=== PATIENT | female | born 1995 | race Caucasian/White ===

== ENCOUNTER 2019-10-16 03:47 | Observation (INO) | payer OTHER ==
--- NOTE | 2019-10-16 04:54 | RADIOLOGY REPORT (SQ) ---
CLINICAL HISTORY: bone tenderness COMPARISON: None. 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 Lungs are clear without consolidation, atelectasis, mass or edema. There is no pleural effusion. There is no pneumothorax. There are no acute osseous findings. IMPRESSION: Clear lungs.
[2019-10-16] MEDS ORDERED: KETOROLAC TROMETHAMINE INJ/PF 30 MG/1 ML SDV IV ONE (05:18)
--- NOTE | 2019-10-16 05:20 | ER Document Report ---
Entered by ALVINO QURESHI SCRIBE 10/16/19 0520 Acting as scribe for:ABEL CHAUDHARI IV, MD ED Medical Screen (RME) - General Chief Complaint: Rib Pain Stated Complaint: RIB PAIN Time Seen by Provider: 10/16/19 05:04 Information source: Patient Notes: This 24 year old female patient presents to the emergency department today with complaints of right upper quadrant abdominal pain. Patient states that she has had this same pain 3 times over the past six years but only had it worked up the first time, which was six years ago. Patient states she thinks they looked at her gall bladder but she is not sure. Patient reports that her mother had her gall bladder removed at age 23. - Related Data Allergies/Adverse Reactions: No Known Allergies Allergy (Verified 10/16/19 04:13) Past Medical History Pulmonary Medical History: Reports: Hx Asthma Past Surgical History: Reports: Hx Gynecologic Surgery Review of Systems - Review of Systems Gastrointestinal: See HPI, Abdominal pain, Nausea, Vomiting Physical Exam - Vital signs Vitals: Temp Pulse Resp BP Pulse Ox 97.6 F 62 20 115/68 100 10/16/19 04:08 10/16/19 04:08 10/16/19 04:08 10/16/19 04:08 10/16/19 04:08 - Respiratory Respiratory status: No respiratory distress - Cardiovascular Rhythm: Regular Heart sounds: Normal auscultation Murmur: No - Abdominal Distension: No distension Tenderness: Tender - RUQ ttp, Ibrahim's sign Course - Vital Signs Vital signs: Temp Pulse Resp BP Pulse Ox 97.6 F 62 20 115/68 100 10/16/19 04:08 10/16/19 04:08 10/16/19 04:08 10/16/19 04:08 10/16/19 04:08 I personally performed the services described in the documentation, reviewed and edited the documentation which was dictated to the scribe in my presence, and it accurately records my words and actions.
[2019-10-16 06:12] LABS: ABSOLUTE MONOCYTES (AUTO) 0.4 10^3/uL (0.1-1.4); ABSOLUTE NEUT (AUTO) 2.7 10^3/uL (1.7-8.2); BASOPHILS % (AUTO) 0.4 % (0-2); EOSINOPHILS % (AUTO) 0.4 % (0-6); HEMATOCRIT 41.8 % (36.0-47.0); HEMOGLOBIN 14.7 g/dL (12.0-15.5); LYMPHOCYTES % (AUTO) 24.4 % (13-45); MEAN CORPUSCULAR HEMOGLOBIN 30.8 pg (27.0-33.4); MEAN CORPUSCULAR VOLUME 88 fl (80-97); MONOCYTES % (AUTO) 10.3 % (3-13); PLATELET COUNT 159 10^3/uL (150-450); RED BLOOD COUNT 4.75 10^6/uL (3.72-5.28); RED CELL DISTRIBUTION WIDTH 13.5 % (11.5-14.0); SEGMENTED NEUTROPHILS % (AUTO) 64.5 % (42-78); TOTAL CELLS COUNTED % (AUTO) 100 %; WHITE BLOOD COUNT 4.2 10^3/uL (4.0-10.5)
[2019-10-16 06:23] LABS: APPEARANCE,URINE SLIGHTLY-CLOUDY; BILIRUBIN,URINE NEGATIVE (NEGATIVE); COLOR,URINE AMBER; GLUCOSE, URINE NEGATIVE (NEGATIVE); KETONES,URINE 20 mg/dL (NEGATIVE); LEUKOCYTE ESTERASE,URINE SMALL (NEGATIVE); NITRITE,URINE NEGATIVE (NEGATIVE); PROTEIN,URINE 30 mg/dL (NEGATIVE)
[2019-10-16 06:33] LABS: ALBUMIN 4.2 g/dL (3.5-5.0); ALKALINE PHOSPHATASE 134 U/L (38-126); ANION GAP 9 (5-19); BILIRUBIN,DIRECT 0.7 mg/dL (0.0-0.4); BILIRUBIN,TOTAL 1.7 mg/dL (0.2-1.3); BLOOD UREA NITROGEN 18 mg/dL (7-20); CALCIUM 8.9 mg/dL (8.4-10.2); CARBON DIOXIDE 24 mmol/L (22-30); CHLORIDE 105 mmol/L (98-107); GLUCOSE 83 mg/dL (75-110)
[2019-10-16 06:43] LABS: ASPARTATE AMINO TRANSFERASE 773 U/L (14-36)
--- NOTE | 2019-10-16 06:45 | ER Document Report ---
ED General - General Chief Complaint: Rib Pain Stated Complaint: RIB PAIN Time Seen by Provider: 10/16/19 05:04 Notes: -year-old female presents with right upper quadrant pain. Severe. Since last night with vomiting. Happened last week after eating and then happen again last night after dinner and has been constant. No fevers no diarrhea. Strong family history of gallstone disease. - Related Data Allergies/Adverse Reactions: No Known Allergies Allergy (Verified 10/16/19 04:13) Past Medical History - General Information source: Patient - Social History Smoking Status: Never Smoker Family History: Reviewed & Not Pertinent Patient has suicidal ideation: No Patient has homicidal ideation: No Pulmonary Medical History: Reports: Hx Asthma Past Surgical History: Reports: Hx Gynecologic Surgery Review of Systems - Review of Systems Notes: REVIEW OF SYSTEMS GEN: Denies fever, chills, weight loss ENT: Denies sore throat, nasal discharge, ear pain EYES: Denies blurry vision, eye pain, discharge CV: Denies chest pain, palpitations, edema RESP: Denies cough, shortness of breath, wheezing GI see HPI MSK: Denies joint pain/swelling, edema, SKIN: Denies rash, skin lesions LYMPH: Denies swollen glands/lymph nodes NEURO: Denies headache, focal weakness or numbness, dizziness PSYCH: Denies depression, suicidal or homicidal ideation PHYSICAL EXAMINATION General: No acute distress, well-nourished Head: Atraumatic, normocephalic ENT: Mouth normal, oropharynx moist, no exudates or tonsillar enlargement Eyes: Conjunctiva normal, pupils equal, lids normal Neck: No JVD, supple, no guarding CVS: Normal rate, regular rhythm, no murmurs Resp: No resp distress, equal and normal breath sounds bilaterally GI: Positive Ibrahim's positive right upper quadrant tenderness Ext: No deformities, no edema, normal range of motion in upper and lower ext Back: No CVA or midline TTP Skin: No rash, warm Lymphatic: No lymphadeopathy noted Neuro: Awake, alert. Face symmetric. GCS 15. Physical Exam - Vital signs Vitals: Temp Pulse Resp BP Pulse Ox 97.6 F 62 20 115/68 100 10/16/19 04:08 10/16/19 04:08 10/16/19 04:08 10/16/19 04:08 10/16/19 04:08 Course - Re-evaluation Re-evalutation: 10/16/19 15:57 Patient presents with upper abdominal pain Ibrahim sign suspicious for gallbladder disease given that she has a family history. Bedside ultrasound positive for dilated gallbladder dilated extrahepatic biliary ducts, and her LFTs are elevated. Order formal ultrasound, discussed with Kendell. No indication for antibiotics Given pain medicine Dr. Rdz to admit - Vital Signs Vital signs: Temp Pulse Resp BP Pulse Ox 97.9 F 54 L 16 103/70 99 10/16/19 11:01 10/16/19 11:01 10/16/19 11:01 10/16/19 11:01 10/16/19 11:01 - Laboratory Result Diagrams: 10/16/19 05:38 10/16/19 05:38 Laboratory results interpreted by me: 10/16/19 10/16/19 05:38 05:50 Total Bilirubin 1.7 H Direct Bilirubin 0.7 H AST 773 H Alkaline Phosphatase 134 H Urine Protein 30 H Urine Ketones 20 H Urine Blood SMALL H Urine Urobilinogen 4.0 H Ur Leukocyte Esterase SMALL H - Diagnostic Test Radiology reviewed: Image reviewed, Reports reviewed Procedures - Ultrasound/Bedside Ultrasound/Bedside Ultrasound: Other - Positive sonographic Ibrahim's. Gallbladder measures 4-1/2 x 9 cm. Dilation. CBDextrahepatic biliary duct measures 1 mm Discharge - Discharge Clinical Impression: Acute cholecystitis Condition: Good Disposition: ADMITTED INPATIENT Admitting Provider: Surgicalist Unit Admitted: Surgical Floor
[2019-10-16] MEDS ORDERED: FENTANYL CITRATE INJ/PF 100 MCG/2 ML AMPUL IV ONE (07:27)
--- NOTE | 2019-10-16 08:17 | PDOC H&P ---
History of Present Illness Admission Date/PCP: 10/16/19 07:29 Patient complains of: Abdominal pain History of Present Illness: ALPA ZHANG is a 24 year old female presents the emergency department complaining of acute onset last night of abdominal pain, nausea and anorexia. Patient has had similar episodes over the last 6 months. She has a remote history of fully stasis during . Strong family history of gallbladder disease. Patient seen in emergency department where she had right subcostal pain radiating to her back. She had a gallbladder ultrasound by the emergency room physician which suggested a distended gallbladder. Formal gallbladder ultrasound by radiology pending. Surgery was consulted. Patient was evaluated emergency department found to have right upper quadrant tenderness. She was hemodynamically stable, no evidence of sepsis. Past Medical History Past Medical History: Elevated liver function studies Medical History: None Pulmonary Medical History: Reports: Asthma Past Surgical History Past Surgical History: No past surgical history Social History Information Source: Patient Smoking Status: Never Smoker Electronic Cigarette use?: No Frequency of Alcohol Use: None Hx Recreational Drug Use: No Hx Prescription Drug Abuse: No Family History Family History: None Parental Family History Reviewed: No Children Family History Reviewed: No Sibling(s) Family History Reviewed.: No Medication/Allergy Allergies/Adverse Reactions: No Known Allergies Allergy (Verified 10/16/19 04:13) Review of Systems Constitutional: PRESENT: as per HPI Eyes: ABSENT: visual disturbances Ears: ABSENT: hearing changes Cardiovascular: ABSENT: chest pain, dyspnea on exertion, edema, orthropnea, palpitations Respiratory: ABSENT: cough, hemoptysis Musculoskeletal: ABSENT: joint swelling Integumentary: ABSENT: rash, wounds Neurological: ABSENT: abnormal gait, abnormal speech, confusion, dizziness, focal weakness, syncope Psychiatric: ABSENT: anxiety, depression, homidical ideation, suicidal ideation Endocrine: ABSENT: cold intolerance, heat intolerance, polydipsia, polyuria Hematologic/Lymphatic: ABSENT: easy bleeding, easy bruising Physical Exam Vital Signs: Temp Pulse Resp BP Pulse Ox 97.6 F 62 20 115/68 100 10/16/19 04:08 10/16/19 04:08 10/16/19 04:08 10/16/19 04:08 10/16/19 04:08 Intake & Output 10/15/19 10/16/19 10/17/19 06:59 06:59 06:59 Weight 52.3 kg General appearance: PRESENT: no acute distress Head exam: PRESENT: normocephalic Eye exam: PRESENT: EOMI Mouth exam: PRESENT: dry mucosa Respiratory exam: PRESENT: clear to auscultation lewis Pulses: PRESENT: normal carotid pulses, normal radial pulses, normal femoral pulses GI/Abdominal exam: PRESENT: soft - Tender right upper quadrant with guarding Rectal exam: PRESENT: deferred Musculoskeletal exam: PRESENT: full ROM Neurological exam: PRESENT: oriented to person, oriented to place, oriented to time, oriented to situation Psychiatric exam: PRESENT: appropriate affect Results Laboratory Results: 10/16/19 05:38 10/16/19 05:38 10/16/19 10/16/19 10/16/19 05:38 05:38 05:38 WBC 4.2 RBC 4.75 Hgb 14.7 Hct 41.8 MCV 88 MCH 30.8 MCHC 35.0 RDW 13.5 Plt Count 159 Seg Neutrophils % 64.5 Sodium 138.3 Potassium 4.0 Chloride 105 Carbon Dioxide 24 Anion Gap 9 BUN 18 Creatinine 0.66 Est GFR ( Amer) > 60 Glucose 83 Calcium 8.9 Total Bilirubin 1.7 H AST 773 H Alkaline Phosphatase 134 H Total Protein 7.0 Albumin 4.2 Lipase 145.7 Serum HCG, Qual NEGATIVE Urine Color Urine Appearance Urine pH Ur Specific [place] Urine Protein Urine Glucose (UA) Urine Ketones Urine Blood Urine Nitrite Ur Leukocyte Esterase Urine WBC (Auto) Urine RBC (Auto) 10/16/19 05:50 WBC RBC Hgb Hct MCV MCH MCHC RDW Plt Count Seg Neutrophils % Sodium Potassium Chloride Carbon Dioxide Anion Gap BUN Creatinine Est GFR ( Amer) Glucose Calcium Total Bilirubin AST Alkaline Phosphatase Total Protein Albumin Lipase Serum HCG, Qual Urine Color FELA Urine Appearance SLIGHTLY-CLOUDY Urine pH 5.0 Ur Specific [place] 1.030 Urine Protein 30 H Urine Glucose (UA) NEGATIVE Urine Ketones 20 H Urine Blood SMALL H Urine Nitrite NEGATIVE Ur Leukocyte Esterase SMALL H Urine WBC (Auto) 20 Urine RBC (Auto) 2 Impressions: Ribs w/Chest X-Ray 10/16/19 00:00 IMPRESSION: Clear lungs. Assessment & Plan - Diagnosis (1) Acute cholecystitis Is this a current diagnosis for this admission?: Yes Plan: Impression: Postprandial right upper quadrant pain, anorexia in thin white female with right upper quadrant tenderness, and dilated gallbladder on preliminary ultrasound suggestive of acute cholecystitis Recommendations: 1. Admit, n.p.o. IV fluids 2. Obtain formal gallbladder ultrasound 3. Anticipate interval cholecystectomy. (2) Elevated LFTs Is this a current diagnosis for this admission?: Yes - Time Time Spent: 30 to 50 Minutes Medications reviewed and adjusted accordingly: Yes Anticipated discharge: Home - Inpatient Certification Based on my medical assessment, after consideration of the patient's comorbidities, presenting symptoms, or acuity I expect that the services needed warrant INPATIENT care.: Yes I certify that my determination is in accordance with my understanding of Medicare's requirements for reasonable and necessary INPATIENT services [42 CFR 412.3e].: Yes Medical Necessity: Need For IV Fluids
[2019-10-16] MEDS ORDERED: RINGERS SOLUTION,LACTATED 1,000 ML IV PRN (08:18)
[2019-10-16] MEDS ORDERED: KETOROLAC TROMETHAMINE INJ/PF 30 MG/1 ML SDV IV PRN (08:18)
--- NOTE | 2019-10-16 08:29 | RADIOLOGY REPORT (SQ) ---
EXAM DESCRIPTION: U/S ABDOMEN LIMITED W/O DOP COMPLETED DATE/TIME: 10/16/2019 8:08 am REASON FOR STUDY: Right upper quadrant pain COMPARISON: None. TECHNIQUE: Dynamic and static grayscale images acquired of the abdomen and recorded on PACS. Additio nal selected color Doppler and spectral images recorded. LIMITATIONS: None. FINDINGS: PANCREAS: No masses. Visualized pancreatic duct normal caliber. LIVER: No masses. Echotexture normal. LIVER VASCULATURE: Normal directional flow of the main portal vein and hepatic veins. GALLBLADDER: Mild gallbladder distention. No wall thickening. No stones or sludge. In a focal area of the gallbladder there is possible pericholecystic edema. This is a soft finding. ULTRASOUND-DETECTED STEPHENS'S SIGN: Negative. INTRAHEPATIC DUCTS AND COMMON DUCT: The common bile duct is dilated measured 8 mm. No stones are asaf ntified. AORTA: No aneurysm. RIGHT KIDNEY: Normal size. Normal echogenicity. No solid or suspicious masses. No hydronephrosis. No calcifications. PERITONEAL AND RIGHT PLEURAL SPACE: No ascites or effusions. OTHER: No other significant findings. IMPRESSION: No stones or sludge. Questionable focal area of pericholecystic fluid. Mild gallbladde r distention. The common bile duct is dilated measured 8 mm. Further evaluation with hepatobiliary scanning may be helpful for further evaluation. TECHNICAL DOCUMENTATION: JOB ID: [id number] [email or web address]- All Rights Reserved Reading location - IP/workstation name: [email or web address]
[2019-10-16] MEDS ORDERED: SUCCINYLCHOLINE CHLORIDE INJ 200 MG/10 ML VIAL ONE (09:41)
[2019-10-16] MEDS ORDERED: ROCURONIUM BROMIDE INJ 50 MG/5 ML VIAL IV ONE (09:41)
[2019-10-16] MEDS ORDERED: BUPIVACAINE HCL 0.25 % INJ/PF (2.5 MG/1 ML) 30 ML VIAL ONE (12:54)
[2019-10-16] MEDS ORDERED: KETOROLAC TROMETHAMINE 60 MG/2 ML SDV ONE (13:00)
[2019-10-16] MEDS ORDERED: HYDROMORPHONE HCL INJ/PF 2 MG/ML AMPULE ONE (13:00)
[2019-10-16] MEDS ORDERED: FENTANYL CITRATE INJ/PF 100 MCG/2 ML AMPUL ONE (13:00)
[2019-10-16] MEDS ORDERED: SUGAMMADEX SODIUM 200 MG/2 ML SDV IV ONE (13:01)
[2019-10-16] MEDS ORDERED: DEXAMETHASONE SOD PHOSPHATE INJ 4 MG/1 ML VIAL ONE (13:01)
[2019-10-16] MEDS ORDERED: ONDANSETRON HCL INJ/PF 4 MG/2 ML SDV ONE (13:01)
[2019-10-16] MEDS ORDERED: MIDAZOLAM 2 MG/2 ML INJ ONE (13:01)
[2019-10-16] MEDS ORDERED: PROPOFOL INJ 200 MG/20 ML VIAL IV ONE (13:01)
[2019-10-16] MEDS ORDERED: CEFAZOLIN INJ 1 GM VIAL ONE (13:21)
[2019-10-16] MEDS ORDERED: OXYCODONE-ACETAMINOPHEN 5-325 MG TABLET PO PRN ×3 (14:29→14:39)
[2019-10-16] MEDS ORDERED: ONDANSETRON HCL INJ/PF 4 MG/2 ML SDV IV PRN (14:29)
[2019-10-16] MEDS ORDERED: DIPHENHYDRAMINE HCL 50 MG/ML VIAL IV PRN (14:29)
[2019-10-16] MEDS ORDERED: FENTANYL CITRATE INJ/PF 100 MCG/2 ML AMPUL IV PRN ×3 (14:29)
[2019-10-16] MEDS ORDERED: MORPHINE SULFATE 10 MG/ML INJ IV PRN (14:29)
[2019-10-16] MEDS ORDERED: PROMETHAZINE HCL INJ 25 MG/1 ML VIAL IV PRN ×2 (14:29)
[2019-10-16] MEDS ORDERED: MEPERIDINE HCL/PF INJ 25 MG/1 ML DISP.SYRIN IV PRN (14:29)
--- NOTE | 2019-10-16 14:36 | Operative Report ---
Operative Report DATE OF SURGERY: 10/16/19 PREOPERATIVE DIAGNOSIS: Acute cholecystitis POSTOPERATIVE DIAGNOSIS: Same OPERATION: Laparoscopic cholecystectomy SURGEON: VICTOR HUGO RAMOS ANESTHESIA: GA TISSUE REMOVED OR ALTERED: 1 gallbladder with contents COMPLICATIONS: None ESTIMATED BLOOD LOSS: Scant INTRAOPERATIVE FINDINGS: See below PROCEDURE: After obtaining informed consent, the patient was taken to the operating room. General Anesthesia was induced; the arms were extended, and the abdomen was exposed, and prepped and draped in a sterile fashion. Instrumentation was set up for laparoscopic cholecystectomy. Surgical plan and surgical timeout were conducted. A vertical incision was made above the umbilicus, and a verres needle was inserted uneventfully into the peritoneal cavity. Pneumoperitoneum was established. The verres needle was removed and a 5 mm trocar was inserted and a 5 mm flexible laparoscope was inserted. Visualization of the peritoneal cavity confirmed safe uneventful entry. Under direct visualization 3 additional 5 mm ports were established, one in the subxiphoid position and second in the subcostal position. Careful inspection of the nasal cavity revealed no evidence of vascular or visceral injury. A grasper was placed on the fundus of the gallbladder and the gallbladder is elevated over the right surface of the liver; a second grasper was used to grasp the infundibulum of the gallbladder. Visualization of the hepato biliary anatomy appeared normal. The neck of the gallbladder and junction with the cystic duct was dissected out. Of note there was significant edema within the gallbladder wall, and the confluence between the neck of the gallbladder and the liver bed. Also of note there was no dominant cystic artery identified throughout the dissection. We now opened the triangle of Calot by dividing the peritoneal reflection on both the medial and lateral sides of the cystic duct infundibular junction. The critical view was obtained. Photos were taken. We now milked the cystic duct of any possible stones, clipped the cystic duct proximally 2 times, once distally and divided the duct with scissors. Photos were taken again. The gallbladder was now removed from the undersurface of the liver using hook cautery dissection. Graspers were repositioned and the gallbladder was removed uneventfully from the abdominal cavity through the super umbilical port site incision. The specimen was examined, then passed off to pathology for permanent analysis. We returned to the peritoneal cavity check for bleeding, and evidence of bile leak, and there was none. We Confirmed satisfactory placement of clips on cystic duct. Again, no dominant cystic artery was identified . At this point we felt the operation was complete. The subcutaneous tissue was then anesthetized with quarter percent Marcaine Sponge and needle counts are correct. All ports removed under direct visualization pneumoperitoneum evacuated, and 5 mm port wounds closed with 3-0 Vicryl suture, benzoin and Steri-Strips. The patient was extubated, and taken to the recovery room in stable condition. The physician medical records assistant, Ms. Najera, provided assistance during this case by: Assisting and port insertion, retracting tissue, instillation of local anesthesia and closure of skin incisions.
[2019-10-16] MEDS: ONDANSETRON HCL INJ/PF 4 MG/2 ML SDV IV PRN ×2 (15:59→21:45)
[2019-10-16] MEDS: ACETAMINOPHEN INJ/PF 1000 MG/100 ML SDV IV SCH ×2 (17:29→23:57)
[2019-10-16] MEDS: KETOROLAC TROMETHAMINE INJ/PF 30 MG/1 ML SDV IV PRN (21:37)
[2019-10-17] MEDS: ACETAMINOPHEN INJ/PF 1000 MG/100 ML SDV IV SCH (05:00)
[2019-10-17] MEDS: KETOROLAC TROMETHAMINE INJ/PF 30 MG/1 ML SDV IV PRN (05:19)
[2019-10-17 09:25] LABS: ALBUMIN 3.5 g/dL (3.5-5.0); ALKALINE PHOSPHATASE 137 U/L (38-126); ANION GAP 6 (5-19); ASPARTATE AMINO TRANSFERASE 393 U/L (14-36); BILIRUBIN,DIRECT 0.2 mg/dL (0.0-0.4); BILIRUBIN,TOTAL 0.9 mg/dL (0.2-1.3); BLOOD UREA NITROGEN 8 mg/dL (7-20); CALCIUM 8.8 mg/dL (8.4-10.2); CARBON DIOXIDE 23 mmol/L (22-30); CHLORIDE 110 mmol/L (98-107); GLUCOSE 75 mg/dL (75-110); POTASSIUM 3.9 mmol/L (3.6-5.0); TOTAL PROTEIN 6.3 g/dL (6.3-8.2)
--- NOTE | 2019-10-17 11:58 | PDOC DISCHARGE SUMMARY ---
General - Admit/Disc Date/PCP Admission Date/Primary Care Provider: 10/16/19 07:29 Discharge Date: 10/17/19 - Discharge Diagnosis Final Diagnosis: Cholecystitis, elevated liver function studies. - Assessment Summary: Patient underwent laparoscopic cholecystectomy. Patient did well postoperatively. She had elevations of her liver function studies preoperatively as well as postoperatively. Her AST was 393, ALT 538, alkaline phosphatase 137 at the time of discharge. Her total bilirubin at admission was 1.7 but it had decreased to 0.9 at the time of discharge. She will be traveling prior to transferring to [facility] in about 3 weeks. She has agreed to return for follow-up with Dr. Rdz early next week with repeat LFTs early in the morning prior to her appointment. She is being discharged to home in good condition. She is encouraged to stay active at home but avoid strenuous activity. She may advance her diet to a low-fat diet. - Additional Information Resuscitation Status: Full Code Discharge Diet: As Tolerated Discharge Activity: Activity As Tolerated - Stay active but avoid strenuous activity. May shower tomorrow. Referrals: VICTOR HUGO RDZ MD [ACTIVE STAFF] - 10/26/19 1:00 pm (Please follow up with Dr Rdz on 10/26/19 at 1:00. If you have any questions please call the office directly at .) Home Medications: No Home Medications 10/16/19 Additional Information: Call for any problems such as persistent nausea or vomiting, fever, increasing abdominal pain, jaundice. She may take Tylenol or Motrin for pain. History of Present Illiness History of Present Illness: ALPA ZHANG is a 24 year old female Physical Exam Vital Signs: Temp Pulse Resp BP Pulse Ox 98.0 F 73 16 113/76 100 10/17/19 11:08 10/17/19 11:08 10/17/19 11:08 10/17/19 11:08 10/17/19 11:08 Intake & Output 10/16/19 10/17/19 10/18/19 06:59 06:59 06:59 Intake Total 1400 Output Total 15 Balance 1385 Weight 52.3 kg 59.6 kg Results Laboratory Results: WBC 4.2 10^3/uL (4.0-10.5) 10/16/19 05:38 RBC 4.75 10^6/uL (3.72-5.28) 10/16/19 05:38 Hgb 14.7 g/dL (12.0-15.5) 10/16/19 05:38 Hct 41.8 % (36.0-47.0) 10/16/19 05:38 MCV 88 fl (80-97) 10/16/19 05:38 MCH 30.8 pg (27.0-33.4) 10/16/19 05:38 MCHC 35.0 g/dL (32.0-36.0) 10/16/19 05:38 RDW 13.5 % (11.5-14.0) 10/16/19 05:38 Plt Count 159 10^3/uL (150-450) 10/16/19 05:38 Lymph % (Auto) 24.4 % (13-45) 10/16/19 05:38 [place] % (Auto) 10.3 % (3-13) 10/16/19 05:38 Eos % (Auto) 0.4 % (0-6) 10/16/19 05:38 Baso % (Auto) 0.4 % (0-2) 10/16/19 05:38 Absolute Neuts (auto) 2.7 10^3/uL (1.7-8.2) 10/16/19 05:38 Absolute Lymphs (auto) 1.0 10^3/uL (0.5-4.7) 10/16/19 05:38 Absolute Monos (auto) 0.4 10^3/uL (0.1-1.4) 10/16/19 05:38 Absolute Eos (auto) 0.0 10^3/uL (0.0-0.6) 10/16/19 05:38 Absolute Basos (auto) 0.0 10^3/uL (0.0-0.2) 10/16/19 05:38 Seg Neutrophils % 64.5 % (42-78) 10/16/19 05:38 Sodium 139.3 mmol/L (137-145) 10/17/19 08:05 Potassium 3.9 mmol/L (3.6-5.0) 10/17/19 08:05 Chloride 110 mmol/L (98-107) H 10/17/19 08:05 Carbon Dioxide 23 mmol/L (22-30) 10/17/19 08:05 Anion Gap 6 (5-19) 10/17/19 08:05 BUN 8 mg/dL (7-20) 10/17/19 08:05 Creatinine 0.63 mg/dL (0.52-1.25) 10/17/19 08:05 Est GFR ( Amer) > 60 (>60) 10/17/19 08:05 Est GFR (MDRD) Non-Af > 60 (>60) 10/17/19 08:05 Glucose 75 mg/dL (75-110) 10/17/19 08:05 Calcium 8.8 mg/dL (8.4-10.2) 10/17/19 08:05 Total Bilirubin 0.9 mg/dL (0.2-1.3) 10/17/19 08:05 Direct Bilirubin 0.2 mg/dL (0.0-0.4) 10/17/19 08:05 Neonat Total Bilirubin Not Reportable 10/17/19 08:05 Neonat Direct Bilirubin Not Reportable 10/17/19 08:05 Neonat Indirect Bili Not Reportable 10/17/19 08:05 AST 393 U/L (14-36) H 10/17/19 08:05 ALT 538 U/L (<35) 10/17/19 08:05 Alkaline Phosphatase 137 U/L (38-126) H 10/17/19 08:05 Total Protein 6.3 g/dL (6.3-8.2) 10/17/19 08:05 Albumin 3.5 g/dL (3.5-5.0) 10/17/19 08:05 Lipase 145.7 U/L (23-300) 10/16/19 05:38 Serum HCG, Qual NEGATIVE (NEGATIVE) 10/16/19 05:38 Urine Color FELA 10/16/19 05:50 Urine Appearance SLIGHTLY-CLOUDY 10/16/19 05:50 Urine pH 5.0 (5.0-9.0) 10/16/19 05:50 Ur Specific [place] 1.030 10/16/19 05:50 Urine Protein 30 mg/dL (NEGATIVE) H 10/16/19 05:50 Urine Glucose (UA) NEGATIVE mg/dL (NEGATIVE) 10/16/19 05:50 Urine Ketones 20 mg/dL (NEGATIVE) H 10/16/19 05:50 Urine Blood SMALL (NEGATIVE) H 10/16/19 05:50 Urine Nitrite NEGATIVE (NEGATIVE) 10/16/19 05:50 Urine Bilirubin NEGATIVE (NEGATIVE) 10/16/19 05:50 Urine Urobilinogen 4.0 mg/dL (<2.0) H 10/16/19 05:50 Ur Leukocyte Esterase SMALL (NEGATIVE) H 10/16/19 05:50 Urine WBC (Auto) 20 /HPF 10/16/19 05:50 Urine RBC (Auto) 2 /HPF 10/16/19 05:50 U Hyaline Cast (Auto) 1 /LPF 10/16/19 05:50 Squamous Epi Cells Auto 13 /HPF 10/16/19 05:50 Urine Mucus (Auto) MANY /LPF 10/16/19 05:50 Urine Ascorbic Acid NEGATIVE (NEGATIVE) 10/16/19 05:50 Impressions: Ribs w/Chest X-Ray 10/16/19 00:00 IMPRESSION: Clear lungs. Abdomen Ultrasound 10/16/19 06:45 IMPRESSION: No stones or sludge. Questionable focal area of pericholecystic fluid. Mild gallbladder distention. The common bile duct is dilated measured 8 mm. Further evaluation with hepatobiliary scanning may be helpful for further evaluation.
--- NOTE | 2019-10-17 12:02 | PDOC PROGRESS REPORT ---
Subjective Progress Note for:: 10/17/19 Subjective:: Feels well. Tolerating liquids. Reason For Visit: RIGHT UPPER QUADRANT PAIN Physical Exam Vital Signs: Temp Pulse Resp BP Pulse Ox 98.0 F 73 16 113/76 100 10/17/19 11:08 10/17/19 11:08 10/17/19 11:08 10/17/19 11:08 10/17/19 11:08 Intake & Output 10/16/19 10/17/19 10/18/19 06:59 06:59 06:59 Intake Total 1400 Output Total 15 Balance 1385 Weight 52.3 kg 59.6 kg General appearance: PRESENT: no acute distress, cooperative Respiratory exam: PRESENT: clear to auscultation lewis Cardiovascular exam: PRESENT: RRR GI/Abdominal exam: PRESENT: other - Wounds clean dry and intact. Soft nondistended with mild appropriate right-sided abdominal tenderness. Results Laboratory Results: 10/16/19 05:38 10/17/19 08:05 10/17/19 08:05 Sodium 139.3 Potassium 3.9 Chloride 110 H Carbon Dioxide 23 Anion Gap 6 BUN 8 Creatinine 0.63 Est GFR ( Amer) > 60 Glucose 75 Calcium 8.8 Total Bilirubin 0.9 AST 393 H Alkaline Phosphatase 137 H Total Protein 6.3 Albumin 3.5 Impressions: Ribs w/Chest X-Ray 10/16/19 00:00 IMPRESSION: Clear lungs. Abdomen Ultrasound 10/16/19 06:45 IMPRESSION: No stones or sludge. Questionable focal area of pericholecystic fluid. Mild gallbladder distention. The common bile duct is dilated measured 8 mm. Further evaluation with hepatobiliary scanning may be helpful for further evaluation. Assessment & Plan - Diagnosis (1) Acute cholecystitis Is this a current diagnosis for this admission?: Yes Plan: Doing well status post laparoscopic cholecystectomy. Will discharge patient home. We will follow-up next week with a repeat LFTs. She did have a mild elevations of her LFTs postoperatively as well as preoperatively. Her total bilirubin which was 1.7 at preop had decreased to 0.9 at the time of discharge. - Time Time Spent with patient: Less than 15 minutes
[2019-10-17 12:16] VITALS: BP 116/76
== END 2019-10-17 12:40 | disposition home or self-care (01) ==
LOC: ER 03:47 → EH 07:29 → INTOOBSV 07:29 → 2N 08:40
PROVIDERS: ADMIT Surgery; ATTEND Surgery
DX: K81.1 Chronic cholecystitis (principal); R94.5 Abnormal results of liver function studies; Z83.79 Family history of other diseases of the digestive system
CPT/HCPCS: 47562; 99285; 96374; 36415 ×2; 83690; 84703; 85025; 80053 ×2; 81001; 88304 ×2; 71101; 76705; 00790; G0378 ×3; J2250; J0690; J3490 ×2; J1100; J1885 ×3; J3010; J1170; J0330; J2405; J7120; J2704; J0131 ×2

== ENCOUNTER → 2019-10-23 | Outpatient (CLI) | payer OTHER ==
[2019-10-23 09:41] LABS: ALBUMIN 4.4 g/dL (3.5-5.0); ALKALINE PHOSPHATASE 110 U/L (38-126); ASPARTATE AMINO TRANSFERASE 44 U/L (14-36); BILIRUBIN,DIRECT 0.3 mg/dL (0.0-0.4); BILIRUBIN,TOTAL 0.7 mg/dL (0.2-1.3); TOTAL PROTEIN 7.4 g/dL (6.3-8.2)
== END ==
LOC: LAB 07:50
PROVIDERS: ATTEND Surgery
DX: Z00.00 Encounter for general adult medical examination without abnormal findings (principal)
CPT/HCPCS: 36415; 80076